=== PATIENT | male | born 1980 | race Caucasian/White ===

== ENCOUNTER 2017-03-06 12:19 | Emergency (ER) | payer BC, OTHER ==
[2017-03-06 12:39] VITALS: BP 136/85
--- NOTE | 2017-03-06 13:49 | RAD ---
INDICATION: Left wrist injury. TECHNIQUE: 3 views of the left wrist were obtained. FINDINGS: The bones are in normal alignment. No fracture is seen. Joint spaces appear maintained. IMPRESSION: NO EVIDENCE FOR FRACTURE, IF THE PATIENT'S SYMPTOMS PERSIST, RECOMMEND FOLLOW-UP IMAGING.
--- NOTE | 2017-03-06 13:51 | RAD ---
INDICATION: Left hand injury. TECHNIQUE: 2 views of the left hand were obtained. FINDINGS: The bones are in normal alignment. No fracture is seen. Joint spaces appear maintained. IMPRESSION: NO EVIDENCE FOR FRACTURE.
--- NOTE | 2017-03-06 14:02 | UC ---
Upper Extremity HPI - History of Current Complaint Chief Complaint: UCUpperExtremity Stated Complaint: LEFT WRIST INJURY (WC) Time Seen by Provider: 03/06/17 12:35 - Allergies/Home Medications Allergies/Adverse Reactions: Allergies Allergy/AdvReac Type Severity Reaction Status Date / Time No Known Allergies Allergy Verified 03/06/17 12:30 PMH/Surg Hx/FS Hx/Imm Hx Endocrine History Of: Reports: Diabetes - TYPE I Denies: Thyroid Disease Cardiovascular History Of: Reports: Hypertension Denies: Cardiac Disorders Respiratory History Of: Denies: Asthma - Surgical History Surgical History: Yes Surgery Procedure, Year, and Place: thumb surgery. VASECTOMY - Family History Known Family History: Positive: Diabetes - Social History Occupation: Employed Full-time Lives: With Family Alcohol Use: Occasionally Alcohol Amount: 4-5 Substance Use Type: None Substance Use Comment - Amount & Last Used: occ usage Smoking Status (MU): Heavy Every Day Tobacco Smoker Type: Cigarettes Amount Used/How Often: 1 PPD Length of Time of Smoking/Using Tobacco: 10 YRS, QUIT FOR 4 YRS, LAST 2 YRS RESUMED SMOKING Have You Smoked in the Last Year: Yes Household Exposure Type: Cigarettes - Immunization History Most Recent Tetanus Shot: UNKNOWN Physical Exam Vital Signs: Initial Vital Signs Temp 98 F 03/06/17 12:31 Pulse 74 03/06/17 12:31 Resp 16 03/06/17 12:31 BP 136/85 03/06/17 12:31 Pulse Ox 100 03/06/17 12:31 Upper Extremity Course/Dx - Differential Dx/Diagnosis Differential Diagnosis/HQI/PQRI: Contusion, Fracture (Open), Strain, Sprain Provider Diagnoses: left wrist sprain. tobacco abuse disorder. HTN in poor control. DM type I Discharge - Discharge Plan Condition: Stable Disposition: HOME Patient Education Materials: Wrist Sprain (ED) Forms: *Work Release Referrals: Truong Cota MD [Medical Doctor] - 1 Week ANA Ramsey [Primary Care Provider] - 2 Days Additional Instructions: Your blood pressure was elevated today at 136/85. Please see your primary care provider within a month to have it re-checked.
== END 2017-03-06 14:18 | disposition home or self-care (01) ==
LOC: UCCORT 12:19
DX: S63.502A Unspecified sprain of left wrist, initial encounter (principal); X58.XXXA Exposure to other specified factors, initial encounter; Y93.9 Activity, unspecified; Y92.9 Unspecified place or not applicable; Y99.0 Civilian activity done for income or pay; E10.9 Type 1 diabetes mellitus without complications; I10 Essential (primary) hypertension; F17.210 Nicotine dependence, cigarettes, uncomplicated
CPT/HCPCS: 99211; G0463

== ENCOUNTER 2018-05-14 07:12 | Emergency (ER) | payer OTHER ==
[2018-05-14] MEDS ORDERED: Fluorescein Sod TOPICAL 0.6* 0.6 MG TEST OPHTHALMIC ONE ×2 (07:23→07:25)
[2018-05-14] MEDS ORDERED: Tetracaine 0.5% OPTH.SOL 4 ML* 1 DROP BTL ONE (07:23)
[2018-05-14] MEDS ORDERED: BSS OPTH.SOL* BTL ONE (07:23)
[2018-05-14] MEDS ORDERED: Eye Irrigation Solution 30 ML BOTTLE LEFT EYE ONE (07:25)
--- NOTE | 2018-05-14 07:44 | UC ---
Eye Complaint HPI - History of Current Complaint Chief Complaint: UCEye Stated Complaint: LT EYE COMP Time Seen by Provider: 05/14/18 07:23 Pain Intensity: 2 - Allergies/Home Medications Allergies/Adverse Reactions: Allergies Allergy/AdvReac Type Severity Reaction Status Date / Time bee venom protein (honey bee) Allergy Difficulty Verified 05/14/18 07:25 Breathing/Wheezing Home Medications: Home Medications Omeprazole CAP* [Prilosec CAP* 20 MG] 20 mg PO DAILY 05/14/18 [History Confirmed 05/14/18] PMH/Surg Hx/FS Hx/Imm Hx Previously Healthy: Yes - Surgical History Surgical History: Yes Surgery Procedure, Year, and Place: thumb surgery. VASECTOMY - Family History Known Family History: Positive: Diabetes - Social History Alcohol Use: Occasionally Alcohol Amount: 4-5 Substance Use Type: None Substance Use Comment - Amount & Last Used: occ usage Smoking Status (MU): Heavy Every Day Tobacco Smoker Type: Cigarettes Amount Used/How Often: 1 PPD Length of Time of Smoking/Using Tobacco: 10 YRS, QUIT FOR 4 YRS, LAST 2 YRS RESUMED SMOKING Have You Smoked in the Last Year: Yes Household Exposure Type: Cigarettes - Immunization History Most Recent Tetanus Shot: 08/2015 ([facility] [place]) Review of Systems Constitutional: Negative Skin: Negative Eyes: Negative, Eye Redness - left eye, reddened swollen, hx. of accuvue contact lenses ENT: Negative Respiratory: Negative Cardiovascular: Negative Gastrointestinal: Negative Genitourinary: Negative Motor: Negative Neurovascular: Negative Musculoskeletal: Negative Neurological: Negative Psychological: Negative All Other Systems Reviewed And Are Negative: Yes Physical Exam Triage Information Reviewed: Yes Appearance: Well-Appearing, Pain Distress Vital Signs: Initial Vital Signs Temp 36.6 C 05/14/18 07:20 Pulse 87 05/14/18 07:20 Resp 16 05/14/18 07:20 BP 169/100 05/14/18 07:20 Pulse Ox 100 05/14/18 07:20 Eye Exam: Other - mildly reddened conjunctiva, normal exam by magnification, ? fb in mid cornea, not confirmed by fluroscein, upper lid examined , no obvious foreign body ENT Exam: Normal Neck exam: Normal Respiratory Exam: Normal Cardiovascular Exam: Normal Abdominal Exam: Normal Psychological Exam: Normal Skin Exam: Normal Procedures - Eye Procedure Left Alcaine Drops Administered: Yes Eye Irrigated w/ Saline (ccs): 5 Eye Complaint Course/Dx - Differential Dx/Diagnosis Provider Diagnoses: fb left eye, resolved Discharge - Sign-Out/Discharge Documenting (check all that apply): Patient Departure - Discharge Plan Condition: Good Disposition: HOME Patient Education Materials: Eye Foreign Body (ED) Referrals: Mariola Burgos MD [Primary Care Provider] - - Billing Disposition and Condition Condition: GOOD Disposition: Home
[2018-05-14 08:06] VITALS: BP 145/100
== END 2018-05-14 08:06 | disposition home or self-care (01) ==
LOC: UCCORT 07:12
DX: F17.210 Nicotine dependence, cigarettes, uncomplicated (principal); T15.92XA Foreign body on external eye, part unspecified, left eye, initial encounter; S00.252A Superficial foreign body of left eyelid and periocular area, initial encounter
CPT/HCPCS: 99211; A9270-GY; G0463